=== PATIENT | female | born 1940 | race Caucasian/White ===

== ENCOUNTER 2021-07-24 02:45 | Emergency (ER) | payer OTHER ==
[2021-07-24 03:33] LABS: Protime INR 1.3
[2021-07-24 03:35] LABS: Basophils % 0.2 % (0-1.3); Hematocrit 37.3 % (36.0-45.0); Lymphocytes % 7.8 % (15.3-44.8); MPV 9.1 fL (7.6-11.3); RBC Red Blood Cell Count 4.31 M/uL (3.86-4.86)
[2021-07-24] MEDS ORDERED: ONDANSETRON 4 MG/2 ML VIAL ONE (03:40)
[2021-07-24] MEDS ORDERED: MORPHINE 2 MG/ML SYR ONE (03:40)
[2021-07-24] MEDS ORDERED: PIPERACIL/TAZO 3.375 GM VIAL IV ONE (03:41)
[2021-07-24] MEDS ORDERED: PANTOPRAZOLE 40 MG INJ ONE (03:41)
[2021-07-24] MEDS ORDERED: NA CHLORIDE 0.9% 100 ML ONE (03:42)
[2021-07-24 03:49] LABS: ALT/SGPT 18 U/L (12-78); AST/SGOT 24 U/L (15-37); Alkaline Phosphatase 167 U/L (45-117); BUN Blood Urea Nitrogen 20 mg/dL (7-18); Bicarbonate 24 mmol/L (21-32); Bilirubin Direct 0.3 mg/dL (0-0.2); Bilirubin Total 0.8 mg/dL (0.2-1.0); Glucose Level 120 mg/dL (74-106); Lipase 38 U/L (73-393); NT PRO-BNP 949 pg/mL (<450); Potassium 3.1 mmol/L (3.5-5.1); Protein, Total 6.7 g/dL (6.4-8.2); Sodium Level 134 mmol/L (136-145); Troponin (Emerg Dept Use Only) < 0.02 ng/mL (0.0-0.045)
[2021-07-24 04:22] LABS: Urine Blood Negative (Negative); Urine Glucose Negative (Negative); Urine Protein 1+ (Negative)
[2021-07-24] MEDS ORDERED: NA CHLORIDE 0.9% 500 ML ONE (04:51)
[2021-07-24] MEDS ORDERED: KCL 20 MEQ/100 mL IVPB 20 MEQ/100 ML BAG IV ONE (04:51)
--- NOTE | 2021-07-24 05:08 | EDPHYS ---
Physician Documentation [facility] Name: Russel See Age: 81 yrs Sex: Female : 1940 Arrival Date: 07/24/2021 Time: 02:47 Bed 28 Private MD: CJ Physician Medhat Jorgensen HPI: 07/24 02:54 This 81 yrs old Female presents to ER via Unassigned with complaints of abd anish pain x 3 months, black stools now. 02:54 The patient presents with abdominal pain in the upper abdomen, abdominal distention in anish the upper abdomen, in the lower abdomen. Onset: The symptoms/episode began/occurred 3 month(s) ago. The patient presents to the emergency department with rectal bleeding, a small amount, melena, with multiple such episodes. Onset: The symptoms/episode began/occurred 2 day(s) ago. Abdominal pain: described as constant, crampy, located in the epigastric area, right upper quadrant and left upper quadrant. Modifying factors: The symptoms are alleviated by nothing, the symptoms are aggravated by nothing. Associated signs and symptoms: The patient has no apparent associated signs or symptoms. The symptoms do not radiate. Associated signs and symptoms: none. The symptoms are described as constant, crampy, steady. Modifying factors: The symptoms are alleviated by nothing, the symptoms are aggravated by nothing. Historical: - Allergies: 02:58 No Known Allergies; bc5 - PMHx: 02:58 Hypertensive disorder; bc5 - PSHx: 02:58 Ligation of fallopian tube; bc5 - Immunization history:: Adult Immunizations not up to date, Flu vaccine is up to date. - Social history:: Smoking status: Patient denies any tobacco usage or history of. - Family history:: not pertinent. ROS: 02:54 Constitutional: Negative for fever, chills, and weight loss, Eyes: Negative for injury, anish pain, redness, and discharge, ENT: Negative for injury, pain, and discharge, Neck: Negative for injury, pain, and swelling, Cardiovascular: Negative for chest pain, palpitations, and edema, Respiratory: Negative for shortness of breath, cough, wheezing, and pleuritic chest pain, Back: Negative for injury and pain, : Negative for injury, bleeding, discharge, and swelling, MS/Extremity: Negative for injury and deformity, Skin: Negative for injury, rash, and discoloration, Neuro: Negative for headache, weakness, numbness, tingling, and seizure, Psych: Negative for depression, anxiety, suicide ideation, homicidal ideation, and hallucinations, Allergy/Immunology: Negative for hives, rash, and allergies, Endocrine: Negative for neck swelling, polydipsia, polyuria, polyphagia, and marked weight changes, Hematologic/Lymphatic: Negative for swollen nodes, abnormal bleeding, and unusual bruising. 02:54 Abdomen/GI: Positive for abdominal pain, abdominal cramps, abdominal distension, black/tarry stool, of the right upper quadrant and left upper quadrant. Exam: 02:54 Constitutional: This is a well developed, well nourished patient who is awake, alert, anish and in no acute distress. Head/Face: Normocephalic, atraumatic. Eyes: Pupils equal round and reactive to light, extra-ocular motions intact. Lids and lashes normal. Conjunctiva and sclera are non-icteric and not injected. Cornea within normal limits. Periorbital areas with no swelling, redness, or edema. ENT: Nares patent. No nasal discharge, no septal abnormalities noted. Tympanic membranes are normal and external auditory canals are clear. Oropharynx with no redness, swelling, or masses, exudates, or evidence of obstruction, uvula midline. Mucous membranes moist. Neck: Trachea midline, no thyromegaly or masses palpated, and no cervical lymphadenopathy. Supple, full range of motion without nuchal rigidity, or vertebral point tenderness. No Meningismus. Chest/axilla: Normal chest wall appearance and motion. Nontender with no deformity. No lesions are appreciated. Cardiovascular: Regular rate and rhythm with a normal S1 and S2. No gallops, murmurs, or rubs. Normal PMI, no JVD. No pulse deficits. Respiratory: Lungs have equal breath sounds bilaterally, clear to auscultation and percussion. No rales, rhonchi or wheezes noted. No increased work of breathing, no retractions or nasal flaring. Back: No spinal tenderness. No costovertebral tenderness. Full range of motion. Female : Normal external genitalia. Skin: Warm, dry with normal turgor. Normal color with no rashes, no lesions, and no evidence of cellulitis. 02:54 Abdomen/GI: Inspection: distension, Bowel sounds: normal, Palpation: mild abdominal tenderness, moderate abdominal tenderness, in the epigastric area, right upper quadrant, left upper quadrant and right lower quadrant, Rectal exam: rectal tone normal, Stool: guaiac negative, hemorrhoid(s), are not appreciated, mass, is not appreciated, swelling, is not appreciated, tenderness, is not appreciated, fecal impaction, is not appreciated, the exam is chaperoned by the nurse, Liver: no appreciated palpable abnormalities, Hernia: not appreciated. 04:26 ECG was reviewed by the Attending Physician. anish Vital Signs: 02:56 BP 114 / 64; Pulse 104; Resp 19; Temp 98.6(O); Pulse Ox 99% on R/A; Weight 102.51 kg bc5 (R); Height 5 ft. 1 in. (154.94 cm) (R); Pain 9/10; 04:42 BP 97 / 48; Pulse 107; Resp 16; Temp 98.5(O); Pulse Ox 97% on R/A; Pain 3/10; bc5 07:30 BP 93 / 48; Pulse 109; Resp 20; Pulse Ox 98% on R/A; oh 07:30 BP 99 / 60; Pulse 96; Resp 20; Temp 98.5(O); Pulse Ox 96% on R/A; oh 09:22 BP 102 / 56; Pulse 91; Resp 20; Pulse Ox 96% on R/A; oh 02:56 Body Mass Index 42.70 (102.51 kg, 154.94 cm) bc5 MDM: 02:50 Patient medically screened. anish 02:59 Differential diagnosis: gastritis, diverticulitis, cholecystitis, Cholelithiasis, anish diverticulitis, gastritis, GI Bleed, Irritable bowel syndrome, Mesenteric ischemia or infarction, non-specific abd pain, Pyelonephritis, Ureterolithiasis, urinary tract infection. Data reviewed: vital signs, nurses notes, EMS record, lab test result(s), EKG, radiologic studies, CT scan, plain films. Data interpreted: nuclear monitoring technician: rate is 104 beats/min, rhythm is regular, Pulse oximetry: on room air is 99 %. Test interpretation: by ED physician or midlevel provider: ECG, plain radiologic studies. Counseling: I had a detailed discussion with the patient and/or guardian regarding: the historical points, exam findings, and any diagnostic results supporting the discharge/admit diagnosis, lab results, radiology results. 07/24 02:53 Order name: Basic Metabolic Panel [facility] 07/24 02:53 Order name: CBC with Diff [facility] 07/24 02:53 Order name: LFT's; Complete Time: 03:59 [facility] 07/24 02:53 Order name: Magnesium; Complete Time: 03:59 [facility] 07/24 02:53 Order name: NT PRO-BNP; Complete Time: 03:59 [facility] 07/24 02:53 Order name: PT-INR; Complete Time: 03:59 [facility] 07/24 02:53 Order name: Troponin (emerg Dept Use Only); Complete Time: 03:59 [facility] 07/24 02:53 Order name: Lipase; Complete Time: 03:59 [facility] 07/24 02:53 Order name: Urine Culture [facility] 07/24 02:53 Order name: Type And Screen; Complete Time: 04:54 [facility] 07/24 02:53 Order name: Basic Metabolic Panel; Complete Time: 03:59 [facility] 07/24 02:53 Order name: CBC with Automated Diff; Complete Time: 03:59 [facility] 07/24 03:26 Order name: SARS-COV-2 RT PCR; Complete Time: 04:54 [facility] 07/24 02:53 Order name: XRAY Chest (1 view) [facility] 07/24 02:53 Order name: EKG; Complete Time: 02:53 [facility] 07/24 02:53 Order name: Cardiac monitoring; Complete Time: 03:36 [facility] 07/24 02:53 Order name: CT Abd/Pelvis - IV Contrast Only [facility] 07/24 04:07 Order name: ABO/RH no charge; Complete Time: 04:20 [facility] 07/24 04:22 Order name: Urine Dipstick-Ancillary; Complete Time: 04:24 [facility] 07/24 04:24 Order name: CREATININE WHOLE BLOOD; Complete Time: 04:28 [facility] 07/24 05:31 Order name: Lactate; Complete Time: 06:46 [facility] 07/24 02:53 Order name: EKG - Nurse/Tech; Complete Time: 03:36 [facility] 07/24 02:53 Order name: IV Saline Lock; Complete Time: 03:36 [facility] 07/24 02:53 Order name: Labs collected and sent; Complete Time: 03:36 [facility] 07/24 02:53 Order name: O2 Per Protocol; Complete Time: 03:36 [facility] 07/24 02:53 Order name: O2 Sat Monitoring; Complete Time: 03:36 [facility] 07/24 02:53 Order name: Urine Dipstick-Ancillary (obtain specimen); Complete Time: 04:24 [facility] 07/24 05:31 Order name: IV Saline Lock - Large Bore; Complete Time: 05:50 [facility] 07/24 05:32 Order name: Dick; Complete Time: 06:13 anish EC:26 Rate is 107 beats/min. Rhythm is irregularly irregular. SD interval is normal. QRS anish interval is normal. QT interval is normal. No Q waves. T waves are Normal. No ST changes noted. Clinical impression: Atrial Fibrillation and No evidence of ischemia. Interpreted by me. Reviewed by me. Administered Medications: 03:30 Drug: Zofran (Ondansetron) 4 mg Route: IVP; Site: right antecubital; df1 04:41 Follow up: Response: Nausea is decreased bc5 03:35 Drug: morphine 2 mg Route: IVP; Site: right antecubital; df1 03:36 Drug: ProTONIX (pantoprazole) 80 mg Route: IVP; Site: right antecubital; df1 04:41 Follow up: Response: No adverse reaction bc5 04:23 Drug: Zosyn (piperacillin-tazobactam) 3.375 grams Route: IVPB; Infused Over: 60 mins; df1 Site: right antecubital; 04:41 Follow up: IV Status: Completed infusion; IV Intake: 50ml bc5 05:51 Drug: NS 0.9% 1000 ml Route: IV; Rate: 1 bolus; Site: right antecubital; bc5 05:51 Drug: NS 0.9% 1000 ml Route: IV; Rate: 1 bolus; Site: left forearm; bc5 05:55 Drug: Potassium Chloride 20 mEq Route: IV; Rate: per protocol; Site: left femoral; bc5 07:53 Drug: NS 0.9% 1000 ml Route: IV; Rate: 125 ml/hr; Site: left hand; oh Disposition Summary: 07/24/21 05:07 Transfer Ordered Transfer Location: [facility] anish Reason: Higher level of care anish Condition: Fair anish Problem: new anish Symptoms: have improved anish Accepting Physician: to [facility](07/24/21 09:31) oh Diagnosis - Persistent atrial fibrillation anish - Abdominal pain, Generalized - cecum mass, thickening,pelvic mass 20.5x 10.1x12.6 anish cm, nemerous hepatic lesions and necrotic nodes - Hypokalemia anish - Elevated white blood cell count anish - Malignant ascites anish Forms: - Medication Reconciliation Form anish - SBAR form anish Signatures: Dispatcher [employer] EDMS Medhat Jorgensen MD MD cha Attema, Lee, FERRIS WHEEL ATTENDANT-C FERRIS WHEEL ATTENDANT-Cla1 Pura Washington, RN RN Annika Burton df1 Feli Deleon RN RN oh Corrections: (The following items were deleted from the chart) 03:26 02:54 CORONAVIRUS+.BRZ ordered. EDWI EDMS 05:09 05:07 to [facility] anish anish 09:31 05:09 to [facility] anish oh
--- NOTE | 2021-07-24 05:08 | ER ---
Nurse's Notes [facility] Name: Russel See Age: 81 yrs Sex: Female : 1940 Arrival Date: 07/24/2021 Time: 02:47 Bed 28 Private MD: Diagnosis: Persistent atrial fibrillation;Abdominal pain, Generalized-cecum mass, thickening,pelvic mass 20.5x 10.1x12.6 cm, nemerous hepatic lesions and necrotic nodes;Hypokalemia;Elevated white blood cell count;Malignant ascites Presentation: 07/24 02:55 Chief complaint: Patient states: BIBA. Pt c/o abdominal pain x 3 months, has been bc5 medicating with Pepto Bismol, denies N/V/D/C. Pt tender to palpation. A\T\O x 3, RR is even and unlabored, speaking in clear and complete sentences at this time. Coronavirus screen: Vaccine status: Patient reports being unvaccinated. 02:55 Method Of Arrival: EMS: [facility] 02:56 Ebola Screen: Patient negative for fever greater than or equal to 101.5 degrees bc5 Fahrenheit, and additional compatible Ebola Virus Disease symptoms Patient denies exposure to infectious person. Patient denies travel to an Ebola-affected area in the 21 days before illness onset. No symptoms or risks identified at this time. Initial Sepsis Screen: Does the patient meet any 2 criteria? No. Patient's initial sepsis screen is negative. Does the patient have a suspected source of infection? No. Patient's initial sepsis screen is negative. Risk Assessment: Do you want to hurt yourself or someone else? Patient reports no desire to harm self or others. Onset of symptoms was April 2021. 02:56 Acuity: ZELDA 3 bc5 Triage Assessment: 02:59 General: Appears uncomfortable, Behavior is calm, cooperative, appropriate for age. bc5 Pain: Complains of pain in abdomen. Historical: - Allergies: 02:58 No Known Allergies; bc5 - PMHx: 02:58 Hypertensive disorder; bc5 - PSHx: 02:58 Ligation of fallopian tube; bc5 - Immunization history:: Adult Immunizations not up to date, Flu vaccine is up to date. - Social history:: Smoking status: Patient denies any tobacco usage or history of. - Family history:: not pertinent. Screenin:37 Abuse screen: Denies threats or abuse. Nutritional screening: No deficits noted. df1 Tuberculosis screening: No symptoms or risk factors identified. Fall Risk No fall in past 12 months (0 pts). Secondary diagnosis (15 points) impaired mobility, IV access (20 points). Ambulatory Aid- Crutches/Cane/Walker (15 pts). Gait- Weak (10 pts.). Mental Status- Oriented to own ability (0 pts). Assessment: 02:59 Neuro: No deficits noted. Cardiovascular: Rhythm is sinus tachycardia Chest pain. bc5 Respiratory: No deficits noted. GI: Abd is soft X 4 quads Abdomen is tender to palpation X 4 quads. 06:16 Reassessment: Son Tanner [phone]. [facility] 08:36 Reassessment: awaiting transfer center to calll back. will try to reach son again. oh 08:39 Reassessment: Spoke with son, advice family on transferring process to [facility]. oh will pass on son info to receiving nurse. 08:54 Reassessment: Report given to INDIRA Vivas, [facility] [address]16. oh Vital Signs: 02:56 BP 114 / 64; Pulse 104; Resp 19; Temp 98.6(O); Pulse Ox 99% on R/A; Weight 102.51 kg bc5 (R); Height 5 ft. 1 in. (154.94 cm) (R); Pain 9/10; 04:42 BP 97 / 48; Pulse 107; Resp 16; Temp 98.5(O); Pulse Ox 97% on R/A; Pain 3/10; bc5 07:30 BP 93 / 48; Pulse 109; Resp 20; Pulse Ox 98% on R/A; oh 07:30 BP 99 / 60; Pulse 96; Resp 20; Temp 98.5(O); Pulse Ox 96% on R/A; oh 09:22 BP 102 / 56; Pulse 91; Resp 20; Pulse Ox 96% on R/A; oh 02:56 Body Mass Index 42.70 (102.51 kg, 154.94 cm) bc5 ED Course: 02:47 Patient arrived in ED. wg 02:50 Medhat Jorgensen MD is Attending Physician. anish 02:54 Padmini, Pura, RN is Primary Nurse. bc5 02:58 Triage completed. bc5 03:35 CBC with Automated Diff Sent. df1 03:35 Basic Metabolic Panel Sent. df1 03:36 CT Abd/Pelvis - IV Contrast Only Sent. df1 03:36 Type And Screen Sent. df1 03:36 Urine Culture Sent. df1 03:36 Lipase Sent. df1 03:36 Basic Metabolic Panel Sent. df1 03:36 CBC with Diff Sent. df1 03:36 LFT's Sent. df1 03:36 Magnesium Sent. df1 03:37 NT PRO-BNP Sent. df1 03:37 PT-INR Sent. df1 03:37 Troponin (emerg Dept Use Only) Sent. df1 03:37 SARS-COV-2 RT PCR Sent. df1 03:37 Inserted saline lock: 18 gauge in right antecubital area, using aseptic technique. df1 03:38 No provider procedures requiring assistance completed. df1 03:38 Arm band placed on right wrist. df1 03:38 Patient has correct armband on for positive identification. Placed in gown. Bed in low df1 position. Call light in reach. Side rails up X 1. 03:50 CT Abd/Pelvis - IV Contrast Only In Process Unspecified. EDMS 04:09 XRAY Chest (1 view) In Process Unspecified. EDMS 06:13 Dick cath inserted, using sterile technique, 16 Fr., by or, balloon inflated, to bc5 gravity drainage, returned clear yellow urine. Patient tolerated well. Inserted saline lock: 20 gauge in left forearm, using aseptic technique. 09:22 Patient transferred, IV remains in place. oh Administered Medications: 03:30 Drug: Zofran (Ondansetron) 4 mg Route: IVP; Site: right antecubital; df1 04:41 Follow up: Response: Nausea is decreased bc5 03:35 Drug: morphine 2 mg Route: IVP; Site: right antecubital; df1 03:36 Drug: ProTONIX (pantoprazole) 80 mg Route: IVP; Site: right antecubital; df1 04:41 Follow up: Response: No adverse reaction bc5 04:23 Drug: Zosyn (piperacillin-tazobactam) 3.375 grams Route: IVPB; Infused Over: 60 mins; df1 Site: right antecubital; 04:41 Follow up: IV Status: Completed infusion; IV Intake: 50ml [facility] 05:51 Drug: NS 0.9% 1000 ml Route: IV; Rate: 1 bolus; Site: right antecubital; bc5 05:51 Drug: NS 0.9% 1000 ml Route: IV; Rate: 1 bolus; Site: left forearm; bc5 05:55 Drug: Potassium Chloride 20 mEq Route: IV; Rate: per protocol; Site: left femoral; bc5 07:53 Drug: NS 0.9% 1000 ml Route: IV; Rate: 125 ml/hr; Site: left hand; oh Intake: 04:41 IV: 50ml; Total: 50ml. [facility] Outcome: 05:07 ER care complete, transfer ordered by . [facility] 09:09 Condition: stable oh 09:09 Instructed on the need for transfer. 09:22 Transferred by ground EMS to [facility], Transfer form completed. oh 09:31 Patient left the ED. oh Signatures: Dispatcher [employer] EDMedhat Leonardo MD MD cha Gamba, Liam, RN Pura Washington RN RN Annika Burton df1 Feli Deleon RN RN oh Corrections: (The following items were deleted from the chart) 08:36 07:30 BP 99 / 60; Pulse 96bpm; Resp 20bpm; Pulse Ox 96% RA; oh oh
[2021-07-24] MEDS ORDERED: NA CHLORIDE 0.9% 2,000 ML ONE (05:58)
--- NOTE | 2021-07-24 07:25 | RAD REPORT ---
EXAM DESCRIPTION: RAD - Chest Single View - 07/24/2021 4:08 am CLINICAL HISTORY: ABDOMINAL DISTENTION COMPARISON: Abdomen Pelvis W Contrast dated 07/24/2021 FINDINGS: Lines: None. Lungs: Linear opacities present bilaterally within the mid lungs. Pleural: No significant pleural effusions or pneumothorax. Cardiac: The heart size is within normal limits. Bones: No acute fractures. Other: IMPRESSION: Linear mid lung opacities bilaterally may represent scarring. No evidence of epifanio pulmo nary edema.
[2021-07-24] MEDS ORDERED: NA CHLORIDE 0.9% 1,000 ML ONE (08:20)
[2021-07-24 09:40] VITALS: TEMP 98.5
[2021-07-24 09:42] VITALS: O2SAT 96
[2021-07-24 09:43] VITALS: BP 102/56
--- NOTE | 2021-07-24 12:07 | RAD REPORT ---
EXAM DESCRIPTION: CT - Abdomen Pelvis W Contrast - 07/24/2021 6:25 am COMPARISON: None. CLINICAL HISTORY: ABD PAIN TECHNIQUE: CT of the abdomen and pelvis was acquired with IV contrast material. Coronal and sagitt al reconstructions were obtained. Automated exposure control was utilized on this examination as a dose lowering technique. FINDINGS: Lung bases: A 7 mm lymph node is noted over the right hemidiaphragm. Otherwise mild atelec tasis is present. Liver: Numerous hypoenhancing hepatic lesions measure up to 4.2 cm. Gallbladder and biliary: Normal gallbladder. Unremarkable biliary tree. Pancreas: Normal. Spleen: Normal. Adrenal glands: Normal adrenal glands. Kidneys: Normal kidneys Stomach and Small Bowel: Normal stomach. Multiple duodenal diverticula measure up to 3.9 cm. Urinary bladder: Decompressed urinary bladder. Uterus and Adnexa: A multicystic pelvic mass measures 20.5 x 10.1 x 12.6 cm. There are areas of incre ased attenuation and calcification. The uterus appears normal. Colon and Appendix: Moderate sigmoid diverticulosis. There is irregular masslike thickening of the ce cum measuring 4.9 x 5.7 x 4.7 cm. No evidence of appendicitis. Retroperitoneum and lymph nodes: An epicardial lymph node measures 1.3 cm short axis. And multiple ne crotic periportal lymph nodes measure up to 5.2 cm. Multiple right lower quadrant necrotic lymph node s measure up to 3.8 cm. Fat stranding is noted adjacent to the cecum with multiple lymph nodes. Vascular: Severe multivessel atherosclerosis. Peritoneal cavity: Mild ascites. Musculoskeletal and soft tissues: Soft tissues are unremarkable. Lumbar spondylosis is present. No ag gressive bone lesions. No compression fracture. IMPRESSION: ABDOMEN/PELVIS IMPRESSION 1. Irregular masslike wall thickening of the cecum with adjacent fat stranding and regional necroti c lymph nodes, concerning for a primary colonic neoplasm. 2. Large multicystic pelvic mass measuring 20.5 x 10.1 x 12.6 cm. This is favored to originate from the right ovary and may represent a benign or malignant ovarian neoplasm. 3. Numerous hypoenhancing hepatic lesions, consistent with metastatic disease. 4. Multiple necrotic periportal, right lower quadrant, and epicardial lymph nodes, consistent with metastatic disease. 5. Mild ascites. Electronically signed by: Willard Herrera MD 07/24/2021 4:28 AM CDT Due to temporary technical issues with the PACS/Fluency reporting system, reports are being signed by the in house radiologist without review as a courtesy to ensure prompt reporting. The interpreting r adiologist is fully responsible for the content of the report.
--- NOTE | 2021-07-24 16:37 | EKG ---
Test Date: 2021-07-24 Test Time: 03:23:57 Nursing Specialist: MEASUREMENT RESULTS: Intervals: Rate: 107 TX: QRSD: 108 QT: 302 QTc: 403 [place]: P: TX: QRS: -65 T: 111 INTERPRETIVE STATEMENTS: Atrial fibrillation with rapid ventricular response Left axis deviation Anterolateral infarct, age undetermined Abnormal ECG No previous ECG available for comparison Electronically Signed On 07-24-21 16:35:35 CDT by Fabiano Perdue
== END 2021-07-24 09:31 | disposition short-term general hospital (02) ==
LOC: ER 02:45
DX: I48.19 Other persistent atrial fibrillation (principal); R18.0 Malignant ascites; E87.6 Hypokalemia; D72.829 Elevated white blood cell count, unspecified; N94.89 Other specified conditions associated with female genital organs and menstrual cycle; K92.89 Other specified diseases of the digestive system; Z20.822 Contact with and (suspected) exposure to COVID-19
CPT/HCPCS: 93005; 87088; 85025; 87086; 80048; 36415; 86900; 83735; 86850; 85610; 82565; 86901; 80076; 83605; 81003; 84484; 83690; 83880; 74177; 71045; U0003; Q9967; J2543; C9113; J3480; J2270; J7040; J7030 ×2; J2405

== ENCOUNTER 2021-10-25 13:59 | Emergency (ER) | payer OTHER ==
--- OUTSIDE RECORDS SUMMARY | 2021-10-25 14:04 | XMS REPORT | Continuity of Care Document ---
:1940 Author Organization [facility] Address [address] [place] [address] Care Team Providers Name Role Phone Virginia AMANDA Attending Clinician Unavailable Laurent RESENDEZ Attending Clinician Unavailable MIRIAM Admitting Clinician Unavailable Payers Payer Name Policy Type Policy Number Effective Date Expiration Date Amy oneal [facility] [id number] 2020 [facility] [place] 00:00:00 Problems This patient has no known problems. Allergies, Adverse Reactions, Alerts Allergy Allergy Status Severity Reaction(s) Onset Inactive Treating Comm ents Source Name Type Date Date Clinician NO KNOWN Allergy Active [facility] Medications This patient has no known medications. Vital Signs Vital Name Observation Time Observation Value Comments Source WEIGHT 2021-07-24 12:00:00 102.513 kg HEIGHT 2021-07-24 12:00:00 154.9 cm WEIGHT 2021-07-24 12:00:00 102.513 kg HEIGHT 2021-07-24 12:00:00 154.9 cm Procedures This patient has no known procedures. Encounters Start End Encounter Admission Attending Care Care Encounter Source Date/Time Date/Time Type Type Clinicians Facility Department ID 2021-07-24 2021-07-26 Inpatient ER GRACE RESENDEZ Internal [id number] 10:45:00 17:38:00 [facility] Med 2021-07-25 2021-07-25 [id number] [facility] 00:00:00 23:59:00 Colleasha chester of Medicin e Results Test Description Test Time Test Comments Results Result Comments Source BLOOD CULTURE 2021-07-29 17:00:56 Test Item Value Reference Range Interpretation Comme nts CULTURE (BEAKER) (test code = 1095) No growth in 5 days BLOOD [id number] 17:00:56 Test Item Value Reference Range Interpretation Comments CULTURE (BEAKER) (test No growth in 5 days code = 1095) The specimen volume collected for this blood culture was below the optimum (10 mL per bottle or 20 mL total). Use of lower volumes may adversely affect recovery and/or detection times of some organisms.C. DIFFICILE GDH TOXIN 2021-07-26 14:33:04 Test Item Value Reference Range Interpretation Comments CDT TOXIN (test code Negative Negative = [id number]) CDT GDH ANTIGEN (test Negative Negative No ind ication of code = [id number]) Clostridi um difficile infection and n o colonization. Discontinue ent dionne isolation and t herapy. Testing performed by [employer] Rapid Cassette Assay. For GDH, published sensitivity of the assay is 98.7% compared to cytotoxicity testing. For Toxin AB, published sensitivity is 87.8% and specificity 99.4% compared to cytotoxicity testing.Verification of kit performance was done by the [facility] prior to clinical use.[id number] 05:19:37 Test Item Value Reference Range Interpretation Comments PHOSPHORUS (BEAKER) (test code = 3.3 mg/dL 2.3-4.7 604) [employer] Worker ID - MATT GBASIC METABOLIC [id number] 05:19:36 Test Item Value Reference Range Interpretation Comments SODIUM (BEAKER) 135 meq/L 136-145 L (test code = 381) POTASSIUM (BEAKER) 3.6 meq/L 3.5-5.1 (test code = 379) CHLORIDE (BEAKER) 105 meq/L 98-107 (test code = 382) CO2 (BEAKER) (test 21 meq/L 22-29 L code = 355) BLOOD UREA NITROGEN 10 mg/dL 7-21 (BEAKER) (test code = 354) CREATININE (BEAKER) 0.73 mg/dL 0.57-1.25 (test code = 358) GLUCOSE RANDOM 98 mg/dL 70-105 (BEAKER) (test code = 652) CALCIUM (BEAKER) 8.3 mg/dL 8.4-10.2 L (test code = 697) EGFR (BEAKER) (test 77 mL/min/1.73 ESTIMA SURAJ GFR IS code = 1092) sq m NOT ACCURATE CREATININE CLEARANCE IN PREDICTING GLOMERULAR FILTRATION RATE . ESTIMATED GFR I S NOT APPLICABLE FOR DIALYSIS PATIEN TS. [employer] Worker ID - MATT [id number] 05:19:36 Test Item Value Reference Range Interpretation Comments MAGNESIUM (BEAKER) (test code = 1.8 mg/dL 1.6-2.6 627) [employer] Worker ID - MATT GCBC W/PLT COUNT & AUTO [id number] 04:42:52 Test Item Value Reference Range Interpretation Comments WHITE BLOOD CELL COUNT (BEAKER) 10.0 K/ L 3.5-10.5 (test code = 775) RED BLOOD CELL COUNT (BEAKER) 3.84 M/ L 3.93-5.22 L (test code = 761) HEMOGLOBIN (BEAKER) (test code = 11.2 GM/DL 11.2-15.7 410) HEMATOCRIT (BEAKER) (test code = 33.9 % 34.1-44.9 L 411) MEAN CORPUSCULAR VOLUME (BEAKER) 88.3 fL 79.4-94.8 (test code = 753) MEAN CORPUSCULAR HEMOGLOBIN 29.2 pg 25.6-32.2 (BEAKER) (test code = 751) MEAN CORPUSCULAR HEMOGLOBIN CONC 33.0 GM/DL 32.2-35.5 (BEAKER) (test code = 752) RED CELL DISTRIBUTION WIDTH 13.5 % 11.7-14.4 (BEAKER) (test code = 412) PLATELET COUNT (BEAKER) (test 194 K/CU MM 150-450 code = 756) MEAN PLATELET VOLUME (BEAKER) 10.9 fL 9.4-12.3 (test code = 754) NUCLEATED RED BLOOD CELLS 0 /100 WBC 0-0 (BEAKER) (test code = 413) NEUTROPHILS RELATIVE PERCENT 75 % (BEAKER) (test code = 429) LYMPHOCYTES RELATIVE PERCENT 12 % (BEAKER) (test code = 430) MONOCYTES RELATIVE PERCENT 11 % (BEAKER) (test code = 431) EOSINOPHILS RELATIVE PERCENT 2 % (BEAKER) (test code = 432) BASOPHILS RELATIVE PERCENT 0 % (BEAKER) (test code = 437) NEUTROPHILS ABSOLUTE COUNT 7.51 K/ L 1.56-6.13 H (BEAKER) (test code = 670) LYMPHOCYTES ABSOLUTE COUNT 1.16 K/ L 1.18-3.74 L (BEAKER) (test code = 414) MONOCYTES ABSOLUTE COUNT (BEAKER) 1.05 K/ L 0.24-0.36 H (test code = 415) EOSINOPHILS ABSOLUTE COUNT 0.15 K/ L 0.04-0.36 (BEAKER) (test code = 416) BASOPHILS ABSOLUTE COUNT (BEAKER) 0.04 K/ L 0.01-0.08 (test code = 417) IMMATURE GRANULOCYTES-RELATIVE 1 % 0-1 PERCENT (BEAKER) (test code = 2801) SARS-COV2/RT-PCR ([facility])2021-07-26 00:02:00 Test Item Value Reference Range Interpretation Comments SARS-COV2/RT-PCR (test code = Negative Negative [id number]) Negative result for this test determines that SARS-CoV-2 RNA was not present in the specimen above the Limit of Detection (LOD). However, Negative results do not preclude SARS-CoV-2 infection and should not be used as the sole basis for treatment or patient management decisions. Negative results must be combined with clinical observations, patient history, and epidemiological information. A false negative result may occur if a specimen is improperly collected, transported, or handled. A false negative result should be considered if patient's recent exposures or clinical presentation indicate that COVID-19 (SARS-CoV-2) is likely and diagnostic tests for other causes of illness are negative. Re-testing should be considered in cases of suspected false negatives.The limit of detection for this assay is 100 copies/mL.This SARS-CoV-2 test is a real-time RT_PCR test intended for the qualitative detection of nucleic acid from SARS-CoV-2 in a nasopharyngeal swab specimen collected from individuals suspected of COVID-19 by their healthcare provider.This test has not been Food and Drug Administration (FDA) cleared or approved. This is a modified version of an approved Emergency Use Authorization (EUA) and is in the process of review by the FDA. Once authorized by the FDA, the issued EUA will be e ffective until the declaration that circumstances exist justifying the authorization of the emergency use of in vitro diagnostic tests for detection and/or diagnosis of COVID-19 is terminated under Section 564(b)(2) of the Act or the EUA is revoked under Section 564(g) of the Act.Testing was performedusing the [employer]ir SARS-CoV-2 assay.Fact Sheet for Healthcare Providers:https://www.Sien.RF Code/alex/RT SARS-CoV-2 HCP Fact Sheet 51- 121692.pdfFact Sheet for Healthcare Patients:https://www.Sien.RF Code/alex/RT SARS-CoV-2 Patient Fact Sheet EN 51-210965Q5.pdfCARCINOEMBRYONIC ANTIGEN (CEA) 2021-07-25 07:04:21 Test Item Value Reference Range Interpretation Comments CARCINOEMBRYONIC ANTIGEN 1313.1 ng/mL 0.0-5.0 H (BEAKER) (test code = 685) [employer] Worker MELECIO ARMENTA LBASIC METABOLIC [id number] 06:14:53 Test Item Value Reference Range Interpretation Comments SODIUM (BEAKER) 132 meq/L 136-145 L (test code = 381) POTASSIUM (BEAKER) 3.7 meq/L 3.5-5.1 (test code = 379) CHLORIDE (BEAKER) 104 meq/L 98-107 (test code = 382) CO2 (BEAKER) (test 21 meq/L 22-29 L code = 355) BLOOD UREA NITROGEN 15 mg/dL 7-21 (BEAKER) (test code = 354) CREATININE (BEAKER) 0.73 mg/dL 0.57-1.25 (test code = 358) GLUCOSE RANDOM 97 mg/dL 70-105 (BEAKER) (test code = 652) CALCIUM (BEAKER) 7.9 mg/dL 8.4-10.2 L (test code = 697) EGFR (BEAKER) (test 77 mL/min/1.73 ESTIMA SURAJ GFR IS code = 1092) sq m NOT ACCURATE CREATININE CLEARANCE IN PREDICTING GLOMERULAR FILTRATION RATE . ESTIMATED GFR I S NOT APPLICABLE FOR DIALYSIS PATIEN TS. [employer] Worker ID - GEOVANY [id number] 05:58:30 Test Item Value Reference Range Interpretation Comments MAGNESIUM (BEAKER) (test code = 2.0 mg/dL 1.6-2.6 627) [employer] Worker MELECIO ARMENTA [id number] 05:58:30 Test Item Value Reference Range Interpretation Comments PHOSPHORUS (BEAKER) (test code = 2.9 mg/dL 2.3-4.7 604) [employer] Worker ID - GEOVANY LHIGH SENSITIVITY TROPONIN [id number] 05:58:08 Test Item Value Reference Range Interpretation Comments HIGH SENSITIVITY 8 pg/ml See_Comment [Automated message] TROPONIN I (test code = The system which [id number]) generated this result transmitted ref erence range: <=17. Th e reference range was not used to interpr et this result as normal/abnormal . [employer] Worker ID - GEOVANY LThe DIRECTOR OF OUTREACH STAT High Sensitivity Troponin-I results should be used in conjunction with other diagnostic information such as ECG, clinical observations and information, and patient symptoms to aid in the diagnosis of GA.LACTIC ACID, [id number] 05:41:24 Test Item Value Reference Range Interpretation Comments LACTATE BLOOD VENOUS (2) (BEAKER) 0.98 mmol/L 0.50-2.20 (test code = 2872) [employer] Worker ID - MATT GCBC W/PLT COUNT & AUTO [id number] 05:34:22 Test Item Value Reference Range Interpretation Comments WHITE BLOOD CELL COUNT (BEAKER) 10.3 K/ L 3.5-10.5 (test code = 775) RED BLOOD CELL COUNT (BEAKER) 3.78 M/ L 3.93-5.22 L (test code = 761) HEMOGLOBIN (BEAKER) (test code = 11.0 GM/DL 11.2-15.7 L 410) HEMATOCRIT (BEAKER) (test code = 34.6 % 34.1-44.9 411) MEAN CORPUSCULAR VOLUME (BEAKER) 91.5 fL 79.4-94.8 (test code = 753) MEAN CORPUSCULAR HEMOGLOBIN 29.1 pg 25.6-32.2 (BEAKER) (test code = 751) MEAN CORPUSCULAR HEMOGLOBIN CONC 31.8 GM/DL 32.2-35.5 L (BEAKER) (test code = 752) RED CELL DISTRIBUTION WIDTH 13.7 % 11.7-14.4 (BEAKER) (test code = 412) PLATELET COUNT (BEAKER) (test 188 K/CU MM 150-450 code = 756) MEAN PLATELET VOLUME (BEAKER) 10.8 fL 9.4-12.3 (test code = 754) NUCLEATED RED BLOOD CELLS 0 /100 WBC 0-0 (BEAKER) (test code = 413) NEUTROPHILS RELATIVE PERCENT 74 % (BEAKER) (test code = 429) LYMPHOCYTES RELATIVE PERCENT 13 % (BEAKER) (test code = 430) MONOCYTES RELATIVE PERCENT 10 % (BEAKER) (test code = 431) EOSINOPHILS RELATIVE PERCENT 2 % (BEAKER) (test code = 432) BASOPHILS RELATIVE PERCENT 0 % (BEAKER) (test code = 437) NEUTROPHILS ABSOLUTE COUNT 7.58 K/ L 1.56-6.13 H (BEAKER) (test code = 670) LYMPHOCYTES ABSOLUTE COUNT 1.28 K/ L 1.18-3.74 (BEAKER) (test code = 414) MONOCYTES ABSOLUTE COUNT (BEAKER) 1.07 K/ L 0.24-0.36 H (test code = 415) EOSINOPHILS ABSOLUTE COUNT 0.19 K/ L 0.04-0.36 (BEAKER) (test code = 416) BASOPHILS ABSOLUTE COUNT (BEAKER) 0.04 K/ L 0.01-0.08 (test code = 417) IMMATURE GRANULOCYTES-RELATIVE 1 % 0-1 PERCENT (BEAKER) (test code = 2801) HEMOGLOBIN [id number] 18:24:08 Test Item Value Reference Range Interpretation Comments HEMOGLOBIN A1C (BEAKER) (test code = 4.5 % 4.3-6.1 368) [id number] 18:15:02 Test Item Value Reference Range Interpretation Comments MAGNESIUM (BEAKER) 1.8 mg/dL 1.6-2.6 Specimen slightly (test code = 627) hemolyzed [employer] Worker ID - [id number] 18:15:02 Test Item Value Reference Range Interpretation Comments PHOSPHORUS (BEAKER) 3.3 mg/dL 2.3-4.7 Specimen slightly (test code = 604) hemolyzed [employer] Worker ID - BSHEPATIC FUNCTION [id number] 18:15:02 Test Item Value Reference Range Interpretation Comments TOTAL PROTEIN (BEAKER) 5.9 gm/dL 6.0-8.3 L Speci men slightly (test code = 770) hemolyzed ALBUMIN (BEAKER) (test 3.0 g/dL 3.5-5.0 L Speci men slightly code = 1145) hemolyzed BILIRUBIN TOTAL 0.8 mg/dL 0.2-1.2 Specimen sli ghtly (BEAKER) (test code = hemoly zed 377) BILIRUBIN DIRECT 0.3 mg/dL 0.1-0.5 Specimen sl ightly (BEAKER) (test code = hemoly zed 706) ALKALINE PHOSPHATASE 137 U/L 40-150 (BEAKER) (test code = 346) AST (SGOT) (BEAKER) 24 U/L 5-34 Specimen slightly (test code = 353) hemolyzed ALT (SGPT) (BEAKER) 8 U/L 6-55 Specimen slightly (test code = 347) hemolyzed [employer] Worker ID - BSBASIC METABOLIC [id number] 18:13:01 Test Item Value Reference Range Interpretation Comments SODIUM (BEAKER) 131 meq/L 136-145 L (test code = 381) POTASSIUM (BEAKER) 3.2 meq/L 3.5-5.1 L (test code = 379) CHLORIDE (BEAKER) 103 meq/L 98-107 (test code = 382) CO2 (BEAKER) (test 18 meq/L 22-29 L code = 355) BLOOD UREA NITROGEN 15 mg/dL 7-21 (BEAKER) (test code = 354) CREATININE (BEAKER) 0.83 mg/dL 0.57-1.25 (test code = 358) GLUCOSE RANDOM 95 mg/dL 70-105 (BEAKER) (test code = 652) CALCIUM (BEAKER) 8.1 mg/dL 8.4-10.2 L (test code = 697) EGFR (BEAKER) (test 66 mL/min/1.73 ESTIMA SURAJ GFR IS code = 1092) sq m NOT ACCURATE CREATININE CLEARANCE IN PREDICTING GLOMERULAR FILTRATION RATE . ESTIMATED GFR I S NOT APPLICABLE FOR DIALYSIS PATIEN TS. [employer] Worker ID - BSPROTHROMBIN [id number] 18:08:03 Test Item Value Reference Range Interpretation Comments PROTIME (BEAKER) 16.7 seconds 11.9-14.2 H (test code = 759) INR (BEAKER) (test 1.38 See_Comment [Automat ed message] code = 370) The system NICO generated this result transmitted ref erence range: <=5.90. The reference range was not used to int erpret this result as normal/abnormal . RECOMMENDED COUMADIN/WARFARIN INR THERAPY RANGESSTANDARD DOSE: 2.0 - 3.0 Includes: PROPHYLAXIS forvenous thrombosis, systemic embolization; TREATMENT for venous thrombosis and/or pulmonary embolus.HIGH RISK: Target INR is 2.5-3.5 for patients with mechanical heart valves.
[2021-10-25 15:33] LABS: Urine Blood 3+ (Negative); Urine Glucose Negative (Negative); Urine Protein 1+ (Negative); Urine Specific Gravity 1.015 (1.005-1.030); Urine pH 5.5 (5.0-7.0)
[2021-10-25 15:35] LABS: Absolute Lymphocytes (CBC) 0.6 K/uL (0.7-4.9); Hematocrit 31.9 % (36.0-45.0); Lymphocytes % 4.1 % (15.3-44.8); MPV 8.2 fL (7.6-11.3); RBC Red Blood Cell Count 3.65 M/uL (3.86-4.86)
--- NOTE | 2021-10-25 15:35 | RAD REPORT ---
EXAM DESCRIPTION: Jayda Single View10/25/2021 3:30 pm CLINICAL HISTORY: Chest pain COMPARISON: July 2021 FINDINGS: A few areas of subsegmental atelectasis within the lungs. The heart is mildly to moderately enlarged.
[2021-10-25] MEDS ORDERED: NA CHLORIDE 0.9% 500 ML ONE (15:37)
[2021-10-25 15:40] LABS: Protime INR 1.2
[2021-10-25 16:07] LABS: Urine Amorphous Sediment 4+ /HPF (NONE SEEN); Urine Bacteria >50 /HPF (<20)
[2021-10-25 16:11] LABS: Albumin 2.4 g/dL (3.4-5.0); Bilirubin Direct 1.2 mg/dL (0-0.2); Bilirubin Total 1.6 mg/dL (0.2-1.0); CKMB Creatine Kinase MB 7.9 ng/mL (1.0-3.6); Potassium 3.5 mmol/L (3.5-5.1); Protein, Total 5.6 g/dL (6.4-8.2); Troponin High Sensitivity 23.2 pg/mL (<58.9)
[2021-10-25] MEDS ORDERED: NA CHLORIDE 0.9% 50 ML ONE (16:37)
[2021-10-25] MEDS ORDERED: CEFTRIAXONE 1000 MG/VIAL ONE (16:37)
--- NOTE | 2021-10-25 18:26 | EDPHYS ---
Physician Documentation [facility] Name: Russel See Age: 81 yrs Sex: Female : 1940 Arrival Date: 10/25/2021 Time: 14:08 Bed 3 Private MD: ED Physician Patrick Lynn HPI: 10/25 18:19 This 81 yrs old Female presents to ER via EMS with complaints of Weakness, terminal kdr cancer. 18:19 Patient attempted to get out of bed this morning into a couch in another room. She was kdr too weak to walk so she crawled into the room but was unable to get off the floor to the couch. It is unknown exactly how long she had been on the floor. She may have been there for up to 24 hours. She has no focal complaint at this time other than generalized weakness. She has been under a physician's care for what is thought to be lung cancer. It is thought that this cancer is terminal and family and caretakers are seeking to get the patient placed into hospice care. Onset: The symptoms/episode began/occurred yesterday. Severity of symptoms: At their worst the symptoms were mild in the emergency department the symptoms are unchanged. The patient has not experienced similar symptoms in the past. The patient has been recently seen by a physician: the patient's primary care provider. Historical: - Allergies: 14:32 No Known Allergies; jg9 - PMHx: 14:32 Hypertensive disorder; jg9 - PSHx: 14:32 Ligation of fallopian tube; jg9 - Immunization history:: Client reports having NOT received the Covid vaccine. Pneumococcal vaccine is up to date, Flu vaccine is up to date. - Social history:: Smoking status: Patient/guardian denies using tobacco, the patient reports quitting approximately 50 years ago. ROS: 18:19 Constitutional: Negative for fever, chills, and weight loss, Eyes: Negative for injury, kdr pain, redness, and discharge, Neck: Negative for injury, pain, and swelling, Cardiovascular: Negative for chest pain, palpitations, and edema, Respiratory: Negative for shortness of breath, cough, wheezing, and pleuritic chest pain, Abdomen/GI: Negative for abdominal pain, nausea, vomiting, diarrhea, and constipation, Back: Negative for injury and pain, MS/Extremity: Negative for injury and deformity. 18:19 Skin: Negative for injury, rash, and discoloration, Psych: Negative for depression, anxiety, suicide ideation, homicidal ideation, and hallucinations, Allergy/Immunology: Negative for hives, rash, and allergies, Endocrine: Negative for neck swelling, polydipsia, polyuria, polyphagia, and marked weight changes, Hematologic/Lymphatic: Negative for swollen nodes, abnormal bleeding, and unusual bruising. 18:19 Respiratory: Positive for cough, "sounds productive", shortness of breath, Negative for sputum production, wheezing. 18:19 Neuro: Positive for weakness. Exam: 18:19 Constitutional: This is a well developed, well nourished patient who is awake, alert, kdr and in no acute distress. Head/Face: Normocephalic, atraumatic. Eyes: Pupils equal round and reactive to light, extra-ocular motions intact. Lids and lashes normal. Conjunctiva and sclera are non-icteric and not injected. Cornea within normal limits. Periorbital areas with no swelling, redness, or edema. Neck: Trachea midline, no thyromegaly or masses palpated, and no cervical lymphadenopathy. Supple, full range of motion without nuchal rigidity, or vertebral point tenderness. No Meningismus. Chest/axilla: Normal chest wall appearance and motion. Nontender with no deformity. No lesions are appreciated. Cardiovascular: Regular rate and rhythm with a normal S1 and S2. No gallops, murmurs, or rubs. Normal PMI, no JVD. No pulse deficits. Abdomen/GI: Soft, non-tender, with normal bowel sounds. No distension or tympany. No guarding or rebound. No evidence of tenderness throughout. Back: No spinal tenderness. No costovertebral tenderness. Full range of motion. Skin: Warm, dry with normal turgor. Normal color with no rashes, no lesions, and no evidence of cellulitis. MS/ Extremity: Pulses equal, no cyanosis. Neurovascular intact. Full, normal range of motion. Psych: Awake, alert, with orientation to person, place and time. Behavior, mood, and affect are within normal limits. 18:19 Respiratory: the patient does not display signs of respiratory distress, Respirations: normal, Breath sounds: rales, that are mild, are scattered, are heard diffusely. 18:19 Neuro: Orientation: is normal, appropriate for stated age, Mentation: appropriate for stated age, Motor: moves all fours, Sensation: no acute changes, Gait: not tested. Vital Signs: 14:15 BP 114 / 66; Pulse 93; Resp 24 S; Temp 98.2(TE); Pulse Ox 99% on R/A; Weight 99.79 kg; jg9 Height 5 ft. 1 in. (154.94 cm); 14:30 BP 104 / 68; Pulse 85; Resp 24 S; Pulse Ox 100% ; jg9 15:30 BP 94 / 57; Pulse 88; Resp 20 S; Pulse Ox 100% on R/A; jg9 16:15 BP 111 / 55; Pulse 77; Resp 24 S; Pulse Ox 100% on R/A; jg9 17:14 BP 107 / 54; Pulse 99; Resp 17; Pulse Ox 100% on R/A; tw2 18:45 BP 99 / 57; Pulse 81; Resp 17 S; Pulse Ox 100% on R/A; jg9 21:13 BP 97 / 47; Pulse 82; Resp 16; Pulse Ox 97% on 2 lpm NC; Pain 0/10; jasmyne 22:25 BP 91 / 54; Pulse 83; Resp 16; Pulse Ox 98% ; jasmyne 14:15 Body Mass Index 41.57 (99.79 kg, 154.94 cm) jg9 MDM: 18:19 Data reviewed: vital signs, nurses notes, lab test result(s), radiologic studies. kdr Counseling: I had a detailed discussion with the patient and/or guardian regarding: the historical points, exam findings, and any diagnostic results supporting the discharge/admit diagnosis, lab results, radiology results, the need to transfer to another facility, Hospice care. ED course: Patient was stable in the emergency department. She responded well to the interventions given. She required no further intervention. She was discharged and transferred to hospice care without incident. Patient was happy with the care provided the plan for transfer to the specialized care setting. 18:25 Patient medically screened. kdr 10/25 14:09 Order name: SARS-COV-2 RT PCR (Document "Date of Onset" if Symptomatic); Complete Time: eb 17:10/25 15:03 Order name: Amylase, Serum kdr 10/25 15:03 Order name: Basic Metabolic Panel; Complete Time: 17: [facility] 10/25 15:03 Order name: Blood Culture Adult (2) kdr 10/25 15:03 Order name: CBC with Diff kdr 10/25 15:03 Order name: CPK; Complete Time: 17:09 [facility] 10/25 15:03 Order name: Ckmb; Complete Time: 17:09 [facility] 10/25 15:03 Order name: LFT's; Complete Time: 17:09 [facility] 10/25 15:03 Order name: Lactate; Complete Time: 17:09 [facility] 10/25 15:03 Order name: Lipase; Complete Time: 17:09 kdr 10/25 15:03 Order name: Procalcitonin; Complete Time: 17:09 [facility] 10/25 15:03 Order name: Protime (+inr); Complete Time: 17: [facility] 10/25 15:03 Order name: Ptt, Activated; Complete Time: 17:09 [facility] 10/25 15:03 Order name: Troponin HS; Complete Time: 17:09 [facility] 10/25 15:03 Order name: Urine Microscopic Only; Complete Time: 17:09 [facility] 10/25 15:03 Order name: Chest Single View XRAY; Complete Time: 17:09 [facility] 10/25 15:03 Order name: Cardiac monitoring; Complete Time: 15:38 [facility] 10/25 15:03 Order name: EKG - Nurse/Tech; Complete Time: 15:56 [facility] 10/25 15:03 Order name: IV Saline Lock - Large Bore; Complete Time: 15:38 [facility] 10/25 15:03 Order name: Labs collected and sent; Complete Time: 15:38 [facility] 10/25 15:03 Order name: O2 Sat Monitoring; Complete Time: 15:38 [facility] 10/25 15:04 Order name: Amylase; Complete Time: 17:09 [facility] 10/25 15:32 Order name: Urine Dipstick-Ancillary; Complete Time: 17:09 [facility] 10/25 16:08 Order name: Urine Culture EDSD 10/25 18:55 Order name: Lactate Sepsis 2 HR Follow-up EDSD 10/25 18:58 Order name: CBC Smear Scan EDSD 10/25 15:03 Order name: Urine Dipstick-Ancillary (obtain specimen); Complete Time: 15:38 kdr Administered Medications: 15:39 Drug: NS 0.9% 500 ml Route: IV; Rate: bolus; Site: right antecubital; jg9 16:30 Follow up: IV Status: Completed infusion; IV Intake: 500ml jg9 16:42 Drug: Rocephin - (cefTRIAXone) 1 grams Route: IVPB; Infused Over: 30 mins; Site: right jg9 antecubital; 17:15 Follow up: IV Status: Completed infusion; IV Intake: 50ml jg9 18:40 Follow up: IV Status: Completed infusion jg9 20:36 Follow up: Response: No adverse reaction lg3 Disposition Summary: 10/25/21 18:25 Transfer Ordered Transfer Location: Other Acute Care Facility kdr Reason: Higher level of care kdr Condition: Fair kdr Problem: an ongoing problem kdr Symptoms: are unchanged kdr Accepting Physician: Demetri(10/25/21 23:17) lg3 Diagnosis - Weakness kdr - Terminal lung cancer kdr Forms: - Medication Reconciliation Form kdr - SBAR form kdr Signatures: Dispatcher [employer] EDPatrick Pitts MD MD kdr Quin Zuleta RN RN lg3 Ángela Bearden RN RN jg9 Corrections: (The following items were deleted from the chart) 15:39 15:03 Accucheck ordered. kdr jg9 23:17 18:25 Demetri kdr lg3
--- NOTE | 2021-10-25 18:26 | ER ---
Nurse's Notes [facility] Name: Russel See Age: 81 yrs Sex: Female : 1940 Arrival Date: 10/25/2021 Time: 14:08 Bed 3 Private MD: Diagnosis: Weakness;Terminal lung cancer Presentation: 10/25 14:15 Chief complaint: EMS states: Patient brought in to ED for evaluation after patient was jg9 found on floor by home health nurse-staff believed patient was on the floor for .24hr-patient voiced no complaints, denied falling, reported she got out of bed and could only crawl into the living room but then was unable to get up onto the couch-patient is under hospice care for terminal cancer-they still wanted patient brought in for direct admit due to patient not having 24hr care and not being able to care for herself. Coronavirus screen: Vaccine status: Patient reports being unvaccinated. Ebola Screen: Patient negative for fever greater than or equal to 101.5 degrees Fahrenheit, and additional compatible Ebola Virus Disease symptoms Patient denies exposure to infectious person. Patient denies travel to an Ebola-affected area in the 21 days before illness onset. Initial Sepsis Screen: Does the patient meet any 2 criteria? Yes Does the patient have a suspected source of infection? No. Patient's initial sepsis screen is negative. Risk Assessment: Do you want to hurt yourself or someone else? Patient reports no desire to harm self or others. Note n/a. 14:15 Method Of Arrival: EMS: [facility] jg9 14:15 Acuity: ZELDA 3 jg9 14:35 Onset of symptoms is unknown. jg9 Triage Assessment: 14:15 General: Appears uncomfortable, Behavior is calm, cooperative. Pain: Complains of pain jg9 in back-chronic. Historical: - Allergies: 14:32 No Known Allergies; jg9 - PMHx: 14:32 Hypertensive disorder; jg9 - PSHx: 14:32 Ligation of fallopian tube; jg9 - Immunization history:: Client reports having NOT received the Covid vaccine. Pneumococcal vaccine is up to date, Flu vaccine is up to date. - Social history:: Smoking status: Patient/guardian denies using tobacco, the patient reports quitting approximately 50 years ago. Screenin:34 Abuse screen: Denies threats or abuse. Denies injuries from another. Nutritional jg9 screening: No deficits noted. Tuberculosis screening: No symptoms or risk factors identified. Fall Risk Secondary diagnosis (15 points) cancer-weakness. Assessment: 15:56 General: Appears in no apparent distress. Behavior is calm. Pain: Complains of pain in jg9 back. Neuro: No deficits noted. Cardiovascular: No deficits noted. Respiratory: Denies Patient denied sob but seems to get sob with exertion-spo2 maintained on room air greater than 95%. 15:57 GI: No deficits noted. : Reports shirley came out today-stephens and strap were on the jg9 patient r leg-this nurse removed it and discarded in trash. 18:57 Reassessment: Report called to Elizabeth Nova RN at hospice in [place]. jg9 20:10 General: The pt was able to help put herself on a bedpan and had a moderate loose jasmyne stool. Her turgor is good and no breakdown noted. Awaiting EMS for transport to hospice. . 20:36 Reassessment: Patient appears in no apparent distress at this time. No changes from lg3 previously documented assessment. Patient and/or family updated on plan of care and expected duration. Pain level reassessed. Patient is alert, oriented x 3, equal unlabored respirations, skin warm/dry/pink. 22:24 General: EMS is here to take the pt to hospice. No change in status. . jasmyne Vital Signs: 14:15 BP 114 / 66; Pulse 93; Resp 24 S; Temp 98.2(TE); Pulse Ox 99% on R/A; Weight 99.79 kg; jg9 Height 5 ft. 1 in. (154.94 cm); 14:30 BP 104 / 68; Pulse 85; Resp 24 S; Pulse Ox 100% ; jg9 15:30 BP 94 / 57; Pulse 88; Resp 20 S; Pulse Ox 100% on R/A; jg9 16:15 BP 111 / 55; Pulse 77; Resp 24 S; Pulse Ox 100% on R/A; jg9 17:14 BP 107 / 54; Pulse 99; Resp 17; Pulse Ox 100% on R/A; tw2 18:45 BP 99 / 57; Pulse 81; Resp 17 S; Pulse Ox 100% on R/A; jg9 21:13 BP 97 / 47; Pulse 82; Resp 16; Pulse Ox 97% on 2 lpm NC; Pain 0/10; jasmyne 22:25 BP 91 / 54; Pulse 83; Resp 16; Pulse Ox 98% ; jasmyne 14:15 Body Mass Index 41.57 (99.79 kg, 154.94 cm) jg9 Vitals: 15:30 Cardiac Rhythm Assessment Regular Sinus rhythm. jg9 ED Course: 14:00 \T\1350 patient's dependency case manager called to inform us about the patient coming/ according to eb the dependency case manager the hospice care consultant found patient on floor where she had been laying for 12hrs also states patient is confused and complaining of right sided pain. Case Mangjenna says that Dr. Laguna would like the patient placed on inpatient hospice that our pump house operator would make arrangements. Patient [employer] Form Placing Supervisor can be reached at [phone]/ patient's son Amor also called to leave his contact information/ he is aware of what the plan of care will be but would still like to be called once placement has been made/ his cell is [phone]. 14:08 Patient arrived in ED. eb 14:15 Patient has correct armband on for positive identification. Bed in low position. Call jg9 light in reach. 14:20 Arm band placed on right wrist. jg9 14:26 Patrick Lynn MD is Attending Physician. kdr 14:27 Ángela Bearden, INDIRA is Primary Nurse. jg9 14:32 Triage completed. jg9 15:15 Inserted saline lock: 20 gauge in right antecubital area, using aseptic technique. jg9 15:29 Chest Single View XRAY In Process Unspecified. EDMS 15:38 Amylase, Serum Sent. jg9 15:56 No apparent distress. Resting quietly. Awaiting lab results, Awaiting radiology results.jg9 16:43 No apparent distress. Resting quietly. jg9 17:26 per Mission Analyst , Aria from [facility] has the patient chart and is reviewing it/ eb Aria should call us back in an hour to two and let us know if she has been accepted to this facility. 17:47 administrative approval given by Briana Rai/ patient has been accepted to [facility] eb rm 206/ Dr. Mosquera has accepted the patient in transfer without conference with Dr. Lynn/ report to be called to [phone]. 18:26 called [facility] ambulance to arrange transport for patient they will be here in 1.5 hrs to 2 hrs. hopefully sooner. 23:16 No provider procedures requiring assistance completed. IV discontinued, intact, lg3 bleeding controlled, Pressure dressing applied. Administered Medications: 15:39 Drug: NS 0.9% 500 ml Route: IV; Rate: bolus; Site: right antecubital; jg9 16:30 Follow up: IV Status: Completed infusion; IV Intake: 500ml jg9 16:42 Drug: Rocephin - (cefTRIAXone) 1 grams Route: IVPB; Infused Over: 30 mins; Site: right jg9 antecubital; 17:15 Follow up: IV Status: Completed infusion; IV Intake: 50ml jg9 18:40 Follow up: IV Status: Completed infusion jg9 20:36 Follow up: Response: No adverse reaction lg3 Intake: 16:30 IV: 500ml; Total: 500ml. jg9 17:15 IV: 50ml; Total: 550ml. jg9 Outcome: 18:25 ER care complete, transfer ordered by MD. kdr 23:16 Transferred by ground EMS Note: [facility] lg3 23:16 Condition: stable 23:16 Instructed on the need for transfer. 23:17 Patient left the ED. lg3 Signatures: Dispatcher [employer] EDMS Patrick Lynn MD MD [facility] Gini Anglin RN RN tw2 Marichuy Rayo Quin Zuleta RN RN lg3 Ángela Bearden RN RN jg9 Samantha Pepe RN RN bo Corrections: (The following items were deleted from the chart) 17:50 17:44 \T\1350 patient's dependency case manager called to inform us about the patient coming/ eb according to the dependency case manager the hospice care consultant found patient on floor where she had been laying for 12hrs also states patient is confused and complaining of right sided pain. Case Manger says that Dr. Laguna would like the patient placed on inpatient hospice that our pump house operator would make arrangements. Patient [employer] Form Placing Supervisor can be reached at [phone]/ patient's son Amor also called to leave his contact information/ he is aware of what the plan of care will be but would still like to be called once placement has been made/ his cell is [phone] eb
[2021-10-25 18:58] LABS: Blood Morphology Comment NOT SEEN (NOT SEEN); Platelet Estimate ADEQ; White Blood Cell Scan OK (OK)
[2021-10-25 23:24] VITALS: TEMP 98.2
[2021-10-25 23:32] VITALS: BP 91/54; O2SAT 98
== END 2021-10-25 23:17 ==
LOC: ER 13:59
DX: C34.90 Malignant neoplasm of unspecified part of unspecified bronchus or lung (principal); U07.1 COVID-19; I10 Essential (primary) hypertension
CPT/HCPCS: 96365; 96361; 87040 ×2; 87088; 85025; 87086; 80048; 36415; 82150; 82550; 85610; 80076; 83605 ×2; 85730; 87077; 87186; 84484; 82553; 83690; 84145; 71045; 99285; U0003; J7040; 81003; 81015; 93005